=== PATIENT | female | born 1950 | race Caucasian/White ===

== ENCOUNTER 2017-03-14 10:24 | Emergency (ER) | payer MEDICAID ==
[~2017-03-14] VITALS: Ht 157.5 cm; Wt 62.6 kg
[~2017-03-14 10:24] MED LIST: CIPR500T4 PO; ENAL5TAB PO; HYDR-3498 PO; PANT40TA3 PO; RANI150T9 PO
[2017-03-14 10:26] VITALS: Ht 157.5 cm; Wt 62.6 kg
[2017-03-14] MEDS ORDERED: ONDANSETRON (ODT) 4 MG TAB ODT STA (10:42)
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
[2017-03-14] MEDS ORDERED: HYDROCODONE/APAP (10/325) TAB PO ONE (11:00)
--- NOTE | 2017-03-14 11:27 | RADRPT ---
PROCEDURE: XR Wrist 4 Views. CLINICAL INDICATION: Left wrist pain and trauma. TECHNIQUE: AP, oblique, scaphoid and lateral views of the left wrist were performed. COMPARISON: No prior studies are available for comparison. FINDINGS: Subtle, transverse lucency is identified in the distal radius, extending to the radial styloid with mild contour irregularity over the posterior medial aspect of the distal radius. Finding suggest a n ondisplaced distal radius fracture. The remaining osseous structures appear intact. No destructive bony lesions are identified. Interosseous spaces are normal. Soft tissues surrounding the wrist ar e unremarkable. IMPRESSION: Subtle, nondisplaced distal radius fracture. If further characterization is needed CT should be cons idered. If there is high clinical suspicion for additional traumatic injury, further evaluation with CT shou ld be considered. RPTAT: AA .Leonardo You MD, Date Time Electronically viewed and signed by .Leonardo You MD, on 03/14/2017 11:27 .P/
[2017-03-14] MEDS ORDERED: IBUP-1542 PO (12:08)
[2017-03-14] MEDS ORDERED: HYDR-906 PO (12:08)
== END 2017-03-14 12:20 | disposition home or self-care (01) ==
LOC: FTE 10:24
DX: S52.501A Unspecified fracture of the lower end of right radius, initial encounter for closed fracture (principal); I10 Essential (primary) hypertension; W18.39XA Other fall on same level, initial encounter; Y92.89 Other specified places as the place of occurrence of the external cause
CPT/HCPCS: 29125; 73110; Z7502; Z7610

== ENCOUNTER 2017-04-25 11:30 | Emergency (ER) | END 2017-04-25 22:01 | disposition home or self-care (01) ==

== ENCOUNTER 2017-07-24 08:32 | Emergency (ER) | END 2017-07-24 11:33 | disposition home or self-care (01) ==

== ENCOUNTER 2017-09-26 04:31 | Emergency (ER) | END 2017-09-26 05:46 | disposition home or self-care (01) ==

== ENCOUNTER 2018-12-01 13:11 | Emergency (ER) | payer MEDICAID ==
[~2018-12-01] VITALS: Ht 160 cm; Wt 64.0 kg
[~2018-12-01 13:11] MED LIST changes: +ACET500C5 PO; +ALBU8.5H8 INH; +AMLO-147 PO; +BENZ1LOZ52 MM; -CIPR500T4 PO; +CYCL10TA7 PO; -ENAL5TAB PO; +GUAI120S25 PO; -HYDR-3498 PO; +HYDR-4011 PO; +IBUP-1542 PO; +MECL12.574 PO; -PANT40TA3 PO; +PHEN-537 PO; -RANI150T9 PO; +SIMV20TA PO
[2018-12-01 13:19] VITALS: BP 170/74; PULSE 63; RESP 20; Ht 160 cm; Wt 64.0 kg
[2018-12-01] MEDS ORDERED: ALBUTEROL 0.083% (NEB) 2.5 MG/3 ML AMP HHN STA (13:43)
[2018-12-01] MEDS ORDERED: IPRATROPIUM (NEB) 0.5 MG/2.5 ML AMP HHN ONE (14:00)
== END 2018-12-01 14:47 | disposition home or self-care (01) ==
LOC: FTE 13:11
DX: J20.9 Acute bronchitis, unspecified (principal); I10 Essential (primary) hypertension
CPT/HCPCS: 71046; 94664; Z7502; Z7610